=== PATIENT | male | born 1985 | race Caucasian/White ===

== ENCOUNTER → 2018-08-05 08:04 | Outpatient (CLI) | payer MEDICAID, SELFPAY ==
--- NOTE | 2018-08-05 08:08 | XR_ITS ---
XR wrist RT min 3V HISTORY ITS.REASON: carpal tunnel syndrome/ pain in RT wrist ORDERING PHYSICIAN: Alvin Magallanes MD PATIENT AGE: 33 years Comparison: None FINDINGS: No fracture or dislocation. No lytic or blastic change. There is normal mineralization.. The joint spaces are well-preserved. No significant degenerative/arthritic changes. No erosive changes evident.. IMPRESSION: Negative wrist
--- NOTE | 2018-08-05 08:23 | XR_ITS ---
XR wrist LT min 3V HISTORY ITS.REASON: wrist pain ORDERING PHYSICIAN: Alvin Magallanes MD PATIENT AGE: 33 years Comparison: None FINDINGS: No fracture or dislocation. No lytic or blastic change. There is normal mineralization.. The joint spaces are well-preserved. No significant degenerative/arthritic changes. No erosive changes evident.. IMPRESSION: Negative wrist
== END ==
PROVIDERS: PCP Emergency Medicine; Visit Provider Orthopaedic Surgery
DX: G56.01 Carpal tunnel syndrome, right upper limb (principal); M25.532 Pain in left wrist
CPT/HCPCS: 73110

== ENCOUNTER → 2018-08-11 11:21 | Outpatient (CLI) | payer MEDICAID, SELFPAY ==
--- NOTE | 2018-08-11 11:49 | XR_ITS ---
XR chest 2V HISTORY: ITS.REASON: SMOKER ORDERING PHYSICIAN: Alvin Magallanes MD PATIENT AGE: 33 years COMPARISON: None FINDINGS: The cardiomediastinal silhouette and pulmonary vascularity are within normal limits. The lungs are clear without infiltrates, suspicious nodules, or pleural effusions. There is mild hyperinflation with prominent anterior clear space. This may be seen with smoking related lung disease/chronic bronchitis or asthma No acute bony abnormalities. IMPRESSION: Hyperinflation suggesting small airway disease, no acute finding
[2018-08-11 11:53] LABS: Basophils % 0.5 % (0.1-2.0); Eosinophils # 0.1 K/mm3 (0.0-0.4); Eosinophils % 2.1 % (0.1-12.0); Hematocrit 35.1 % (42.0-52.0); Hemoglobin 11.6 g/dL (14.1-18.0); Lymphocytes # 1.5 K/mm3 (0.7-4.5); Lymphocytes % 25.2 K/mm3 (10-50); Mean Corpuscular Hemoglobin 31.4 pg (27.0-31.2); Mean Corpuscular Volume 95.2 fl (80-94); Mean Platelet Volume 7.5 fl (7.4-10.4); Monocytes # 0.3 K/mm3 (0.1-1.0); Monocytes % 5.3 % (1.7-9.3); Neutrophils # 4.1 K/mm3 (1.8-7.8); Neutrophils % 66.9 % (37.0-80.0); Platelet Count 221 K/mm3 (142-424); Red Blood Count 3.69 M/mm3 (4.60-6.20); Red Cell Distribution Width 14.2 % (11.5-17.5); White Blood Count 6.1 K/mm3 (4.8-10.8)
[2018-08-11 13:00] LABS: Blood Urea Nitrogen 13 mg/dL (7-18); Calcium 8.9 mg/dL (8.5-10.1); Carbon Dioxide 30 mmol/L (21.0-32.0); Chloride 104 mmol/L (98-107); Creatinine,Serum 0.81 mg/dL (0.70-1.30); Estimated Glomerular Filt Rate 110 ml/min (>60); GFR (African American) 133 ML/MIN (>60); Sodium 140 mmol/L (136-145)
[2018-08-11 13:01] LABS: Glucose 119 mg/dL (74-106)
== END ==
PROVIDERS: PCP Emergency Medicine; Visit Provider Orthopaedic Surgery
DX: Z01.818 Encounter for other preprocedural examination (principal)
CPT/HCPCS: 36415; 71046; 80048; 85025

== ENCOUNTER → 2018-08-11 11:34 | Outpatient (CLI) | payer MEDICAID, SELFPAY | PROVIDERS: PCP Emergency Medicine; Visit Provider Orthopaedic Surgery | DX: Z01.818 Encounter for other preprocedural examination (principal) | CPT/HCPCS: 36415; 80048; 85025 ==

== ENCOUNTER → 2019-01-11 13:33 | Outpatient (CLI) | payer MEDICAID, SELFPAY ==
[2019-01-11 14:27] LABS: Amphetamine/Metha Screen,Urine Negative ng/mL (<1000); Barbiturates Screen,Urine Negative ng/mL (<200); Benzodiazepines Screen,Urine Positive ng/mL (<200); Cannabinoid Screen,Urine Positive ng/mL (<50); Cocaine Screen,Urine Positive ng/mL (<300); Methadone Screen,Urine Negative ng/mL (<300); Opiate Screen,Urine Negative ng/mL (<300); Phencyclidine Screen,Urine Negative ng/mL (<25)
[2019-01-15 13:43] LABS: Gabapentin,Urine 72.5 ug/mL (.)
[2019-01-19 14:18] LABS: Alprazolam Positive (.); Benzodiazepines Positive ng/mL (Cutoff=100); Clonazepam Negative (Cutoff=100); Flurazepam Negative (Cutoff=100); Lorazepam Negative (Cutoff=100); Midazolam Negative (Cutoff=100); Temazepam Negative (Cutoff=100); Triazolam Negative (Cutoff=100)
== END ==
PROVIDERS: Visit Provider Nurse Practitioner Family
DX: Z79.899 Other long term (current) drug therapy (principal)
CPT/HCPCS: 80305; 80307; 80346

== ENCOUNTER → 2019-01-14 18:42 | Outpatient (CLI) | payer MEDICAID, SELFPAY ==
--- NOTE | 2019-01-14 18:46 | XR_ITS ---
XR hip RT 2-3V w/pelvis HISTORY: ITS.REASON: pain ORDERING PHYSICIAN: Coleen Gonzales PATIENT AGE: 33 years COMPARISON: None FINDINGS: No fracture or dislocation is evident. No significant degenerative change. There is a well-circumscribed lucent defect within the left femoral neck measuring 2.4 x 1.3 cm. This has a benign appearance and may represent a prominent cortical defect does not appear significant changed compared to CT scan of 05/08/2017 IMPRESSION: 1. Negative right hip. 2. Benign-appearing lucent defect of the left femoral neck which may represent a cortical defect/nonossifying fibroma. Recommend follow-up to confirm stability
--- NOTE | 2019-01-14 18:46 | XR_ITS ---
EXAM: XR lumbar spine min 4V HISTORY: Low back pain ITS.REASON: pain ORDERING PHYSICIAN: Coleen Gonzales PATIENT AGE: 33 years COMPARISON: None FINDINGS: Normal alignment. No fracture or dislocation. No lytic or blastic change. No significant degenerative change. The disc spaces are preserved. Bilateral pars defects are present at L5 without spondylolisthesis. IMPRESSION: 1. Bilateral pars defects at L5 without spondylolisthesis. 2. Otherwise negative
== END ==
PROVIDERS: PCP Nurse Practitioner Family; Visit Provider Nurse Practitioner Family
DX: M54.5 Low back pain (principal); M25.551 Pain in right hip
CPT/HCPCS: 72110; 73502

== ENCOUNTER → 2019-02-15 09:30 | Outpatient (POV) | payer MEDICAID, SELFPAY ==
[2019-02-15 09:41] VITALS: BP 146/86; PULSE 82; RESP 18; O2SAT 98
--- NOTE | 2019-02-15 10:18 | [facility].PMCON ---
Assessment and Plan (1) Sacroiliitis Current visit: Yes Status: Chronic Category: Medical Code(s): M46.1 - Sacroiliitis, not elsewhere classified (2) Bursitis Current visit: Yes Status: Chronic Qualifiers: Bursitis location: hip Hip bursitis location: trochanteric bursitis Laterality: right Qualified Code(s): M70.61 - Trochanteric bursitis, right hip Category: Medical Code(s): M71.9 - Bursopathy, unspecified - Assessment and plan all Dx Assessment and Plan for all problems:: We will schedule the patient for right SI joint injection and right greater trochanteric bursa injection. Patient is tried and failed physical therapy. Patient is continuing a home stretching program he is on anti-inflammatories. Patient has had pain for over [address] Parker has reviewed this note and agrees with this plan of care. This note was dictated using voice recognition software and may contain errors or omissions HPI - Data of Consult Consult date: 02/15/19 Requesting Physician: Yamel Fleming APRN Primary Care Provider: Arun Pryor MD - Consult Narrative Reason for consult: Right lower back pain History of present illness: Mr. Shi is a 33 year old male who presents today for consultation and to go regards to his right lower back pain. He has numbness in his right lower buttock and hip. Patient states that lying flat increases his pain while sitting upright decreases his pain. Patient is tried and failed chiropractic therapy, physical therapy, gabapentin. Patient is currently in a Suboxone clinic he rates his pain a 3 out of 10. CC: Yamel Fleming APRN [facility] History I have reviewed the patient's past medical history: Yes Medical History: Reports:: Anxiety Denies:: Diabetes Mellitus Type 1, Diabetes Mellitus Type 2, Seizures *Have you ever received a pneumonia vaccine?: No *Have you received a flu vaccine this season?: No Other Medical History: Denies: Blood Transfusion Reaction Laterality Cases: Bilateral: Carpal Tunnel Release, Tonsillectomy, Other Amputation: No Fractures: No - *Social History Smoking Status: Current every day smoker Tobacco Type: cigarettes # Packs/Day (cigarettes): 1 Alcohol Intake: never Substance Use Type: opiates *Occupational Status:: employed Housing: house Household Members: other *Travel in the last 8 weeks: None - Psychiatric History Expresses thoughts of harming self/others: None Suicide Plan Description: No Plan Pschychiatric History:: Reports:: Anxiety Family Hx:: No significant family history Review of Systems - Review of Systems ROS General: no recent weight change, no fever, no sleep disturbances Respiratory: no cough, no shortness of air, no recurring pulmonary infections Cardiovascular/Peripheral Vascular: No chest pain, No palpitations, no edema, no shortness of breath. Gastrointestinal: no incontinence, normal bowel movements reported Genitourinary: no incontinence Musculoskeletal: SI joint pain, hip pain Psychiatric: normal mood/ affect Neurological: [denies weakness in extremities], [denies balance issues] Meds Home Medications Medication Instructions Recorded Confirmed Type gabapentin 400 mg capsule 400 mg PO TID #90 cap 01/11/19 01/11/19 Rx Allergies Allergy/AdvReac Type Severity Reaction Status Date / Time ketorolac [From TORADOL] Allergy Unknown Verified 01/11/19 09:41 procaine [From NOVOCAIN] Allergy Unknown Verified 01/11/19 09:41 Objective Vital signs: Pulse Resp BP Pulse Ox 82 18 146/86 H 98 02/15/19 09:41 02/15/19 09:41 02/15/19 09:41 02/15/19 09:41 Narrative: Physical Exam General: Alert and oriented x3, no acute distress, pleasant and cooperative, [on room air] Lungs: Resps E/U, Symmetrical chest expansion, Eyes: PERRL Musculoskeletal: Flexion and extension of lumbar spine somewhat guarded secondary to pain, deep tendon reflexes normal, strength i
--- NOTE | 2019-02-15 10:21 | P.CONS_ITS ---
Assessment and Plan (1) Sacroiliitis Current visit: Yes Status: Chronic Category: Medical Code(s): M46.1 - Sacroiliitis, not elsewhere classified (2) Bursitis Current visit: Yes Status: Chronic Qualifiers: Bursitis location: hip Hip bursitis location: trochanteric bursitis Laterality: right Qualified Code(s): M70.61 - Trochanteric bursitis, right hip Category: Medical Code(s): M71.9 - Bursopathy, unspecified - Assessment and plan all Dx Assessment and Plan for all problems:: We will schedule the patient for right SI joint injection and right greater trochanteric bursa injection. Patient is tried and failed physical therapy. Patient is continuing a home stretching program he is on anti-inflammatories. Patient has had pain for over [address] Parker has reviewed this note and agrees with this plan of care. This note was dictated using voice recognition software and may contain errors or omissions HPI - Data of Consult Consult date: 02/15/19 Requesting Physician: Yamel Fleming APRN Primary Care Provider: Arun Pryor MD - Consult Narrative Reason for consult: Right lower back pain History of present illness: Mr. Shi is a 33 year old male who presents today for consultation and to go regards to his right lower back pain. He has numbness in his right lower buttock and hip. Patient states that lying flat increases his pain while sitting upright decreases his pain. Patient is tried and failed chiropractic therapy, physical therapy, gabapentin. Patient is currently in a Suboxone clinic he rates his pain a 3 out of 10. CC: Yamel Fleming APRN [facility] History I have reviewed the patient's past medical history: Yes Medical History: Reports:: Anxiety Denies:: Diabetes Mellitus Type 1, Diabetes Mellitus Type 2, Seizures *Have you ever received a pneumonia vaccine?: No *Have you received a flu vaccine this season?: No Other Medical History: Denies: Blood Transfusion Reaction Laterality Cases: Bilateral: Carpal Tunnel Release, Tonsillectomy, Other Amputation: No Fractures: No - *Social History Smoking Status: Current every day smoker Tobacco Type: cigarettes # Packs/Day (cigarettes): 1 Alcohol Intake: never Substance Use Type: opiates *Occupational Status:: employed Housing: house Household Members: other *Travel in the last 8 weeks: None - Psychiatric History Expresses thoughts of harming self/others: None Suicide Plan Description: No Plan Pschychiatric History:: Reports:: Anxiety Family Hx:: No significant family history Review of Systems - Review of Systems ROS General: no recent weight change, no fever, no sleep disturbances Respiratory: no cough, no shortness of air, no recurring pulmonary infections Cardiovascular/Peripheral Vascular: No chest pain, No palpitations, no edema, no shortness of breath. Gastrointestinal: no incontinence, normal bowel movements reported Genitourinary: no incontinence Musculoskeletal: SI joint pain, hip pain Psychiatric: normal mood/ affect Neurological: [denies weakness in extremities], [denies balance issues] Meds Home Medications Medication Instructions Recorded Confirmed Type gabapentin 400 mg capsule 400 mg PO TID #90 cap 01/11/19 01/11/19 Rx Allergies Allergy/AdvReac Type Severity Reaction Status Date / Time ketorolac [From TORADOL] Allergy Unknown Verified
== END ==
PROVIDERS: PCP Emergency Medicine; Visit Provider Clinical Nurse Specialist Family Health
DX: M46.1 Sacroiliitis, not elsewhere classified (principal); M70.61 Trochanteric bursitis, right hip
CPT/HCPCS: 99202